=== PATIENT | female | born 1980 | race Caucasian/White ===

== ENCOUNTER 2021-03-24 23:14 | Emergency (ER) | payer BC, SELFPAY ==
--- NOTE | ~2021-03-24 | CT_ITS ---
EXAMINATION: CT abdomen pelvis w con DATE: 03/25/2021 04:12 INDICATION: Right lower quadrant abdominal pain. Vomiting. TECHNIQUE: Computed tomography (CT) of the abdomen and pelvis was performed with 100 mL Omnipaque 350 intravenous contrast. Automated exposure control and iterative reconstruction technique were employe d. The dose-length product was 1479.70 mGy-cm. COMPARISON: None. FINDINGS: The visualized portions of the lung bases demonstrate minimal atelectasis. No pleural effus ion. The heart size is normal. No pericardial effusion. The liver is normal. There are changes of cho lecystectomy. The spleen, pancreas, and adrenal glands are normal. There is a 1.5 cm mass in right ki dney measuring soft tissue attenuation. There is a 2.7 cm mass in left kidney measuring soft tissue a ttenuation. There is a 2.9 cm subserosal uterine fibroid. There are no dilated loops of bowel. The ap pendix is normal. There is an umbilical hernia containing fat. There are no pathologically enlarged l ymph nodes. There is no free intraperitoneal fluid. There is mild thoracolumbar spondylosis. IMPRESSION: 1. Bilateral kidney masses measuring up to 2.9 cm on the left, which may be hemorrhagic cyst(s) or le ss likely neoplasm(s). Abdomen CT without and with contrast is recommended. 2. Uterine fibroid. 3. Umbilical hernia containing fat. Reviewed, dictated and finalized at location A. PILER IMPRESSION: 1. Bilateral kidney masses measuring up to 2.9 cm on the left, which may be hem orrhagic cyst(s) or less likely neoplasm(s). Abdomen CT without and with contra st is recommended. 2. Uterine fibroid. 3. Umbilical hernia containing fat.
[2021-03-24 23:18] VITALS: BP 154/101; PULSE 113; RESP 20; TEMP 36.7; O2SAT 99
[2021-03-25 02:58] VITALS: BP 164/112; PULSE 88; RESP 18; O2SAT 96
[2021-03-25 03:14] LABS: Basophils Absolute Auto 0.1 K/mm3 (0.0-0.1); Basophils Percent Auto 0.9 % (0.2-1.2); Eosinophils Absolute Auto 0.3 K/mm3 (0-0.3); Eosinophils Percent Auto 4.4 % (0-4.4); Hematocrit 39.2 % (37.0-47.0); Hemoglobin 13.1 g/dL (12.0-15.0); Immature Granulocyte Absolute 0.01 K/mm3 (0.00-0.031); Immature Granulocyte Percent A 0.1 % (0-0.5); Lymphocytes Absolute Auto 2.73 K/mm3 (0.9-3.2); Lymphocytes Percent Auto 35.4 % (18.3-44.2); Mean Corpuscular HGB Conc 33.4 g/dl (32-36); Mean Corpuscular Hemoglobin 30.5 pg (26-34); Mean Corpuscular Volume 91.4 fl (80-100); Mean Platelet Volume 9.3 fl (7.4-10.4); Monocytes Absolute Auto 0.8 K/mm3 (0.1-0.6); Neutrophils Absolute Auto 3.8 K/mm3 (1.3-6.7); Neutrophils Percent Auto 49.2 % (45.5-73.1); Platelet Count Result 333 k/mm3 (150-375); Red Blood Count 4.29 M/mm3 (4.2-5.4); Red Cell Distribution Width 12.2 % (11.5-14.5); White Blood Count 7.7 K/mm3 (4.5-10.0)
[2021-03-25] MEDS: ONDANSETRON INJ 4 MG/2 ML VIAL IV PUSH (03:16)
[2021-03-25] MEDS: MORPHINE SULFATE (*CRX) 4 MG/ML INJ IV PUSH (03:18)
[2021-03-25 03:42] VITALS: BP 152/97; PULSE 98; RESP 18; O2SAT 96
[2021-03-25 03:44] LABS: Alanine Aminotransferase 18 U/L (4-35); Albumin Level 4.6 g/dL (3.5-5.1); Alkaline Phosphatase 59 U/L (38-126); Anion Gap 11 mmol/L (8-16); Aspartate Amino Transferase 37 U/L (14-36); Bilirubin,Total 0.4 mg/dL (0.2-1.3); Blood Urea Nitrogen 15 mg/dL (7-17); Calcium 9.3 mg/dL (8.4-10.2); Carbon Dioxide 25 mmol/L (22-30); Chloride 103 mmol/L (98-107); Estimated CRCL calculation 113 ml/min; Estimated Glomerular Filt Rate > 60; Glucose 99 mg/dL (65-110); Potassium 4.2 mmol/L (3.4-5.0); Sodium 139 mmol/L (137-145)
[2021-03-25 04:18] LABS: Add Urine Microscopic? YES; Appearance Urine Clear (Clear); Bilirubin Urine Negative (Negative); Blood Urine 2+ (Negative); Color Urine Yellow (Yellow); Glucose Urine UA Negative (Negative); Ketones Urine Negative (Negative); Leukocyte Esterase Ur Negative LEU/UL (Negative); Mucus Urine Rare /lpf; Nitrate Urine Negative (Negative); Protein Urine Negative (Negative); RBC Urine 0-2 /hpf (0-2); Specific Grav Ur 1.017 (1.001-1.035); Squamous Epithelial Cell Urine Few /hpf (Few); Urobilinogen Urine Negative mg/dL (<2.0); WBC Urine 0-3 /hpf
[2021-03-25] MEDS: DICYCLOMINE HCL 10 MG CAPSULE 20 MG PO (05:12)
--- NOTE | 2021-03-25 05:19 | ED.ABDPAIN ---
HPI - Abdominal Pain General Chief Complaint: Abdominal Pain Stated Complaint: abdominal pain, miscarriage 2 weeks ago Time Seen by Provider: 03/25/21 02:22 History of Present Illness HPI narrative: Patient is a 40-year-old female who presents ER with crampy abdominal pain. Patient recently had a miscarriage at 17 weeks and underwent vaginal delivery with D&C 2 weeks ago. This occurred up near [facility]. She is currently in town visiting family. Cramping has been increasing over the last 2 days. She has no new vaginal discharge or bleeding. She became concerned and contacted her retail support manager who recommended she come here for evaluation. Patient has been having nausea but no diarrhea. Related Data Allergies Allergy/AdvReac Type Severity Reaction Status Date / Time nitrofurantoin AdvReac Abdominal Verified 03/24/21 23:21 [From Macrobid] Pain NSAIDS (Non-Steroidal AdvReac Unknown Verified 03/24/21 23:21 Anti-Inflamma Review of Systems Review of Systems: All systems reviewed & are unremarkable except as noted in HPI and below Constitutional: Constitutional: Denies chills, Denies fever(s) and Denies weakness Cardiovascular: Cardiovascular: Denies chest pain and Denies radiating jaw, neck or arm pain Respiratory: Respiratory: Denies cough and Denies dyspnea Gastrointestinal: Gastrointestinal: Reports abdominal pain, Denies diarrhea, Reports nausea and Denies vomiting Genitourinary: Genitourinary: Denies abnormal vaginal bleeding, Denies nocturia, Denies dysuria, Denies flank pain and Denies vaginal discharge PMFSH Past Medical History Medical History (Updated 03/25/21 @ 06:08 by Tyler Benitez MD) Endometriosis Thyroid cancer Surgical History Surgical History (Updated 03/25/21 @ 05:57 by Tyler Benitez MD) H/O dilation and curettage H/O thyroidectomy History of cholecystectomy Social History Social History (Updated 03/25/21 @ 05:57 by Tyler Benitez MD) Smoking status: Never smoker Exam Narrative: GENERAL: Anxious and tearful, well-nourished, and in mild acute distress. HEAD: Normocephalic, atraumatic. ENT: Mucous membranes moist. CHEST: Clear to auscultation. No respiratory distress. HEART: Regular rate and rhythm. Normal peripheral pulses. ABDOMEN: Soft, nontender, nondistended, normal active bowel sounds. EXTREMITIES: Normal range of motion. No edema. NEURO: Alert and oriented x3. PSYCH: Normal mood and affect. Course Course Emergency Course: Pain improved with morphine, it returned patient given Bentyl and Toradol. Informed of results. Discussed need for follow-up ultrasound regarding renal cyst. Gave reassurance. Discharge home. Vital Signs Vital signs: Vital Signs Temperature 98.0 F 03/24/21 23:18 Pulse Rate 113 H 03/24/21 23:18 Respiratory Rate 20 03/24/21 23:18 Blood Pressure 154/101 H 03/24/21 23:18 Pulse Oximetry 99 03/24/21 23:18 Temperature 98.0 F 03/24/21 23:18 Pulse Rate 98 03/25/21 03:42 Respiratory Rate 18 03/25/21 03:42 Blood Pressure 152/97 H 03/25/21 03:42 Pulse Oximetry 96 03/25/21 03:42 MDM - Abdominal Pain Lab Data Result diagrams: 03/25/21 03:09 03/25/21 03:09 Labs: Lab Results 03/25/21 03/25/21 03/25/21 Range/Units 03:09 03:09 03:58 WBC 7.7 (4.5-10.0) K/mm3 RBC 4.29 (4.2-5.4) M/mm3 Hgb 13.1 (12.0-15.0) g/dL Hct 39.2 (37.0-47.0) % MCV 91.4 (80-100) fl MCH 30.5 (26-34) pg MCHC 33.4 (32-36) g/dl RDW 12.2 (11.5-14.5) % Plt Count 333 (150-375) k/mm3 MPV 9.3 (7.4-10.4) fl Immature Gran % (Auto) 0.1 (0-0.5) % Neut % (Auto) 49.2 (45.5-73.1) % Lymph % (Auto) 35.4 (18.3-44.2) % [place] % (Auto) 10.0 H (2.6-8.5) % Eos % (Auto) 4.4 (0-4.4) % Baso % (Auto) 0.9 (0.2-1.2) % Lymph # (Auto) 2.73 (0.9-3.2) K/mm3 [place] # (Auto) 0.8 H (0.1-0.6) K/mm3 Eos # (Auto) 0.3 (0-0.3) K
[2021-03-25] MEDS: KETOROLAC 30 MG/ML VIAL (*BKC) IV PUSH (06:12)
[2021-03-25 06:19] VITALS: BP 158/106; PULSE 83; RESP 18; O2SAT 96
--- NOTE | 2021-03-25 06:23 | PC.NURSE ---
erp aware of high bp
== END 2021-03-25 06:25 | disposition home or self-care (01) ==
PROVIDERS: Emergency Provider Emergency Medicine
DX: I88.0 Nonspecific mesenteric lymphadenitis (principal); N28.1 Cyst of kidney, acquired; N80.9 Endometriosis, unspecified; Z85.850 Personal history of malignant neoplasm of thyroid; E89.0 Postprocedural hypothyroidism
CPT/HCPCS: 36415; 74177; 80053; 81001; 81025; 85025; 96374; 96375; 99284; A9270; J1885; J2270; J2405; Q9967